=== PATIENT | female | born 1945 | race Caucasian/White ===

== ENCOUNTER 2021-12-19 08:27 | Emergency (ER) | payer MEDICARE, OTHER ==
[~2021-12-19] VITALS: Ht 157.5 cm; Wt 89.4 kg
[~2021-12-19 08:27] MED LIST: LISINOPRIL PO; MAXIDE PO
[2021-12-19] MEDS ORDERED: LEVO25TA2 PO (08:37)
[2021-12-19] MEDS ORDERED: EZET10TA15 PO (08:37)
[2021-12-19] MEDS ORDERED: AMLO5TAB4 PO (08:37)
--- NOTE | 2021-12-19 09:06 | NUR ---
MD at bedside for evaluation
[2021-12-19] MEDS ORDERED: MORPHINE SULFATE 2 MG/1 ML DISP.SYRIN IM ONE (09:15)
[2021-12-19] MEDS ORDERED: ACETAMINOPHEN ES 500 MG TABLET PO ONE (09:15)
[2021-12-19] MEDS ORDERED: ACETAMINOPHEN ES 500 MG TABLET ONE (09:16)
[2021-12-19] MEDS ORDERED: MORPHINE SULFATE 2 MG/1 ML DISP.SYRIN ONE (09:17)
--- NOTE | 2021-12-19 09:50 | NUR ---
X-ray at the bedside.
[2021-12-19 09:52] LABS: HEMATOCRIT 39.3 % (31.2-41.9); MEAN CORPUSCULAR HEMOGLOBIN 28.1 uug (24.7-32.8); MEAN CORPUSCULAR VOLUME 86.3 fL (75.5-95.3); PLATELET COUNT (AUTO) 287 K/uL (179-408)
[2021-12-19 09:57] LABS: BILIRUBIN,DIRECT 0.1 mg/dL (0.0-0.2); BILIRUBIN,TOTAL 0.5 mg/dL (0.2-1.0); CREATININE 1.3 mg/dL (0.6-1.3); TOTAL PROTEIN, SERUM 7.3 g/dL (6.4-8.2)
--- NOTE | 2021-12-19 10:20 | NUR ---
Ultrasound conducted at bedside.
[2021-12-19 11:15] LABS: URIC ACID 5.2 mg/dL (2.6-6.0)
[2021-12-19] MEDS ORDERED: KETOROLAC TROMETHAMINE 60 MG INJ IM ONE ×2 (12:15→12:19)
[2021-12-19] MEDS ORDERED: HYDROCODONE/APAP 5-325MG TABLET PO ONE (12:15)
--- NOTE | 2021-12-19 12:18 | NUR ---
[facility] call from [facility].
[2021-12-19] MEDS ORDERED: HYDROCODONE/APAP 5-325MG TABLET ONE (12:20)
--- NOTE | 2021-12-19 12:28 | NUR ---
Patient to be transferred to [facility].
--- NOTE | 2021-12-19 13:46 | NUR ---
Gave report to SALEEM Munoz at [facility].
--- NOTE | 2021-12-19 14:20 | NUR ---
Patient picked up by ambulance, all of belongings sent with patient.
== END 2021-12-19 14:30 | disposition short-term general hospital (02) ==
LOC: ER 08:27
DX: M79.604 Pain in right leg (principal); I10 Essential (primary) hypertension; R22.41 Localized swelling, mass and lump, right lower limb
CPT/HCPCS: 99285; 93971; 80076; 80048; 82550; 84550; 85025; 85651; 36415; 73564; 73590; 73610; 96372 ×2; J1885; J2270; A4663; A9150